=== PATIENT | female | born 1980 | race Caucasian/White ===

== ENCOUNTER 2018-01-09 18:44 | Emergency (ER) | END 2018-01-10 00:06 | disposition home or self-care (01) ==

== ENCOUNTER 2019-05-21 10:40 | Emergency (ER) | payer MEDICAID ==
[~2019-05-21] VITALS: Ht 157.5 cm; Wt 67.0 kg
[~2019-05-21 10:40] MED LIST: ACET500C5 PO; CEPH-443 PO; CETI10TA34 PO; GUAI118L94 PO; IBUP-1541 PO; IBUP-1542 PO; ONDA4TAB35 PO
[2019-05-21 10:54] VITALS: BP 116/75; PULSE 74; RESP 16; Ht 157.5 cm; Wt 67.0 kg
[2019-05-21] MEDS ORDERED: LORA10TA3 PO (11:29)
[2019-05-21] MEDS ORDERED: HYDR45OI9 TOP (11:29)
--- NOTE | 2019-05-21 11:37 | ERD ---
ER Documentation Chief Complaint Chief Complaint HIVES ON FACE & NECK X1 WEEK HPI This is a 38-year-old female patient presents emergency room with complaint of red rash to face and neck x1 week. Rash feels burning, tingling, face feels flushed. Patient denies exposure to any new soaps, lotions, changes in medicat ions. States she had similar but worse episode 12 years ago in [facility]. Denies recent travel, no sick contacts, no chronic medical problems. No known allergies. ROS All systems reviewed and are negative except as per history of present illness. Medications Home Meds Active Scripts Loratadine* (Loratadine*) 10 Mg Tablet, 10 MG PO DAILY for ALLERGIC REACTION for 30 Days, #30 TAB Prov:KOBY REARDON NP 05/21/19 Hydrocortisone Butyrate (Hydrocortisone Butyrate) 1% - 45 Gm Oint..gm., 1 APPLIC TOP BID for DERMATITIS for 14 Days, #21 G Prov:KOBY REARDON NP 05/21/19 Cephalexin* (Keflex*) 500 Mg Capsule, 500 MG PO TID for 7 Days, CAP Prov:ANGELES WILL PA-C 01/09/18 Acetaminophen* (Tylophen*) 500 Mg Capsule, 1 CAP PO Q6H PRN for PAIN AND OR ELEVATED TEMP, #20 CAP Prov:ANGELES WILL PA-C 01/09/18 Ibuprofen* (Motrin*) 600 Mg Tab, 600 MG PO Q6, #30 TAB Prov:ANGELES WILL PA-C 01/09/18 Cetirizine Hcl* (Cetirizine Hcl*) 10 Mg Tab.chew, 10 MG PO DAILY, #30 TAB Prov:GRAHAM SIN NP 02/07/16 Ibuprofen* (Ibuprofen*) 400 Mg Tablet, 400 MG PO Q6H PRN for PAIN AND OR ELEVATED TEMP, #30 TAB Prov:GRAHAM SIN NP 02/07/16 Guaifenesin-Codeine Phosphate* (Guaifenesin* with Codeine Liq) 120 Ml Liquid, 5 ML PO Q4H for COUGH, #60 ML Prov:GRAHAM SIN NP 02/07/16 Ondansetron Hcl* (Zofran* ODT) 4 mg -ODT Tab.disper, 4 MG PO Q8 PRN for NAUSEA AND/OR VOMITING, #30 TAB Prov:GRAHAM SIN CARBIDE GRINDER 02/07/16 Reported Medications [None] Unknown Strength No Conflict Check 02/07/16 Allergies Allergies: Coded Allergies: No Known Allergy (Unverified , 06/30/14) PMhx/Soc History of Surgery: Yes (C-SECTIONS X2) Anesthesia Reaction: No Hx Neurological Disorder: No Hx Respiratory Disorders: No Hx Cardiac Disorders: No Hx Psychiatric Problems: No Hx Miscellaneous Medical Probl: No Hx Alcohol Use: No Hx Substance Use: No Hx Tobacco Use: No FmHx Family History: No diabetes, No coronary disease, No other Physical Exam Vitals Vital Signs Date Temp Pulse Resp B/P (MAP) Pulse Ox O2 O2 Flow FiO2 Time Delivery Rate 05/21/19 97.1 74 16 116/75 97 10:54 (89) Physical Exam Const: No acute distress Head: Atraumatic Eyes: Normal Conjunctiva ENT: Normal External Ears, Nose and Mouth. Neck: Full range of motion. No meningismus. Resp: Clear to auscultation bilaterally Cardio: Regular rate and rhythm, no murmurs Abd: Soft, non tender, non distended. Normal bowel sounds Skin: fine red macular rash to forehead, edges of face, left eye lid, and bl lower neck, fading similar rash to right wrist, no swelling, no induration Back: No midline or flank tenderness Ext: No cyanosis, or edema Neur: Awake and alert Psych: Normal Mood and Affect Procedures/MDM MDM: This is a 38-year-old female patient presents emergency room with a contact dermatitis to her face and neck. Rash is in a linear macular appearance from the neck line up, indicative of exposure to environmental allergen or possibly the sun. There is no erythema, swelling, pain, induration that would indicate an infectious process. She does not present with wheezing, drooling, inflamed pharynx to indicate any anaphylaxis or worsening allergic response. Patient was provided with skin care instructions, instructions on avoiding allergens, following up with primary care doctor and fruit coordinator. Patient was instructed on use of topical hydrocortisone as well as Claritin and instructed to return to the emergency room with any changing or worsening of symptoms. History and physical exam and plan of care discussion performed via interpreter deaf services DISPOSITION and PLAN: The patient has been discharge home to follow-up with community physician. Departure Diagnosis: Primary Impression: Dermatitis Additional Impression: Allergic reaction Condition: Stable Patient Instructions: First Aid: Allergic Reactions Referrals: [facility] YOU HAVE RECEIVED A MEDICAL SCREENING EXAM AND THE RESULTS INDICATE THAT YOU DO NOT HAVE A CONDITION THAT REQUIRES URGENT TREATMENT IN THE EMERGENCY DEPARTMENT. FURTHER EVALUATION AND TREATMENT OF YOUR CONDITION CAN WAIT UNTIL YOU ARE SEEN IN YOUR DOCTORS OFFICE WITHIN THE NEXT 1-2 DAYS. IT IS YOUR RESPONSIBILITY TO MAKE AN APPOINTMENT FOR FOLOW-UP CARE. IF YOU HAVE A PRIMARY DOCTOR --you should call your primary doctor and schedule an appointment IF YOU DO NOT HAVE A PRIMARY DOCTOR YOU CAN CALL OUR PHYSICIAN REFERRAL HOTLINE AT IF YOU CAN NOT AFFORD TO SEE A PHYSICIAN YOU CAN CHOSE FROM THE FOLLOWING [facility] [id number] [facility] [place] [address] [facility] [address] [facility] [address] [facility] [address] [facility] [facility]. [address] Additional Instructions: Thank you very much for allowing us to participate in your care. Your health and safety is our top priority at [facility]. Call your primary care doctor TOMORROW for an appointment during the next 2-4 d ays and bring all the information and medications prescribed. Have prescriptions filled and follow precisely the directions on the label. If the symptoms get worse and your provider is unavailable, return to the Emergency Department immediately. Apply thin layer of cream to clean washed face twice daily. Take Claritin daily to reduce allergic response. Follow-up with primary care provider if rash does not resolve within 2 weeks, you may need referral to dermatology. KOBY REARDON NP May 21, 2019 11:37
== END 2019-05-21 11:40 | disposition home or self-care (01) ==
LOC: FTE 10:40
DX: L30.9 Dermatitis, unspecified (principal); L50.0 Allergic urticaria
CPT/HCPCS: 99283